=== PATIENT | female | born 1950 | race Caucasian/White ===

== ENCOUNTER 2017-01-15 15:54 | Outpatient (CLI) | payer MEDICARE, OTHER ==
--- NOTE | 2017-01-17 16:58 | Diagnostic Imaging Report ---
Indication: Right hip pain Technique: Right hip imaging utilizing multiplanar T1 fast spin-echo, proton and T2 fast spin-echo with fat saturation, and STIR. Comparison: None Findings: There is no bone marrow edema to suggest fracture. There is trace right hip effusion noted. There is no malalignment or evidence of AVN. The area of the greater trochanteric bursae shows no fluid. Musculotendinous structures about the right hip are unremarkable. Mild osteophyte formation involving the hip joints noted bilaterally. In the right ilium adjacent to the sacroiliac joint there is focal cortical erosion or surgical defect noted.. Prior bone biopsy or harvesting. The visualized part of the lower lumbar spine demonstrates magnetic susceptibility artifact likely associated with pedicle screws and fusion rods. Impression: Osteoarthritis of the hips. No evidence of fracture or AVN. Right iliac cortical defect may be postsurgical in nature. Please correlate clinically. Multilevel lumbar fusion.
== END 2017-01-15 17:54 | disposition home or self-care (01) ==
LOC: MRI 15:54
DX: M25.551 Pain in right hip (principal); M81.0 Age-related osteoporosis without current pathological fracture

== ENCOUNTER 2018-06-18 21:34 | Emergency (ER) | payer MEDICARE, OTHER ==
[~2018-06-18] VITALS: Ht 152.4 cm; Wt 59.0 kg
[~2018-06-18 21:34] MED LIST: BUPROPION XL300 MG ORAL
[2018-06-18 22:00] VITALS: BP 100/60
--- NOTE | 2018-06-18 22:00 | NUR ---
ED Nurse Note: Pt arrived with EMT and urgent care physician assistant, EMT report pt blood sugar alfredo around 30 so urgent care physician assistant call 911. Pt had cookies and orange juice before arriving ER. Pt is AO x 4times,on room air no distress,BS 83 when triage. Pt states she didn't want to stay in ER, so Pt signed AMA form. Provide risk and benefit of ER visited but Pt still refused. Pt went home without being seen ERMD.
== END 2018-06-18 22:00 | disposition left against medical advice (07) ==
LOC: EDBD 21:34 → EMR 21:38
DX: E16.2 Hypoglycemia, unspecified (principal); Z53.21 Procedure and treatment not carried out due to patient leaving prior to being seen by health care provider